=== PATIENT | female | born 1995 | race Caucasian/White ===

== ENCOUNTER 2021-05-04 00:21 | Observation (INO) ==
[~2021-05-04 00:21] MED LIST: Famotidine 20 MG/2 ML VIAL IVP PRN; Metoclopramide 10 MG/2 ML VIAL IVP PRN; Naloxone 0.4 MG/ML INJ IVP PRN
[2021-05-04 09:08] LABS: Basophils # 0.1 K/mcL (0.0-0.2); Basophils % 0.4 %; Eosinophils # 0.1 K/mcL (0.0-0.6); Eosinophils % 0.7 %; Hemoglobin 11.8 g/dL (11.5-15.4); Immature Granulocytes % 0.5 % (0-4); Lymphocytes % 17.7 %; Mean Corpuscular HGB Conc 33.7 g/dL (31.6-35.5); Mean Corpuscular Hemoglobin 29.7 pg (28.0-33.3); Mean Corpuscular Volume 88.2 fL (83.0-100.0); Mean Platelet Volume 9.1 fL (9.4-12.4); Monocytes # 1.1 K/mcL (0.0-1.3); Monocytes % 6.6 %; Neutrophils # 12.3 K/mcL (1.6-8.9); Platelet Count 366 K/mcL (140-400); Red Blood Count 3.97 M/mcL (3.82-4.97); Red Cell Distribution Width 16.2 % (11.5-14.5); Segmented Neutrophils % 74.1 %; White Blood Count 16.7 K/mcL (4.3-11.1)
[2021-05-04 09:20] VITALS: BP 122/92; PULSE 80; TEMP 98
[2021-05-04] MEDS ORDERED: BuPROPion XL (24 HR) 150 MG TABLET PO SCH (10:30)
[2021-05-04] MEDS ORDERED: FLUoxetine 20 MG CAPSULE PO SCH (10:30)
[2021-05-04] MEDS ORDERED: Prenatal Vit/FA 1 EACH TABLET PO SCH (10:30)
== END 2021-05-04 12:30 | disposition home or self-care (01) ==
LOC: 1NENULAB → 1NENUOBS 00:21 → 1NENUPED 01:13
PROVIDERS: ADMIT Student in an Organized Health Care Education/Training Program; ATTEND Student in an Organized Health Care Education/Training Program